=== PATIENT | female | born 1980 | race African-American/Black ===

== ENCOUNTER 2019-05-02 08:24 | Emergency (ER) | payer OTHER ==
[~2019-05-02] VITALS: Ht 160 cm; Wt 72.6 kg
[2019-05-02] MEDS ORDERED: KETOROLAC TROMETHAMINE 30 MG/ML VIAL IV STA (08:29)
[2019-05-02] MEDS ORDERED: PANTOPRAZOLE 40 MG 10ML VIAL IV STA (08:29)
[2019-05-02] MEDS ORDERED: ONDANSETRON HCL INJ 2MG/ML 2ML 2 MG/ML VIAL IV STA (08:29)
[2019-05-02] MEDS ORDERED: SODIUM CHLORIDE 0.9% 1000ML 1,000 ML IV STA (08:29)
[2019-05-02] MEDS ORDERED: DICYCLOMINE HCL 20 MG/2 ML VIAL IM ONE (08:30)
[2019-05-02 09:21] LABS: BASOPHILS % 0.2 % (0.0-1.0); EOSINOPHILS % 0.7 % (0.0-6.0); HEMATOCRIT 36.1 % (34.2-44.1); HEMOGLOBIN 11.8 g/dL (12.0-16.0); LYMPHOCYTES # (AUTO) 1.4 (1.0-3.2); LYMPHOCYTES % 23.9 % (18.0-39.1); MEAN CORPUSCULAR HEMOGLOBIN 30.1 pg (28-32); MEAN CORPUSCULAR HGB CONC 32.7 g/dL (31-35); MEAN CORPUSCULAR VOLUME 92.1 fL (81-99); MONOCYTES # (AUTO) 0.5 (0.2-0.8); MONOCYTES % 9.1 % (4.4-11.3); NEUTROPHILS # (AUTO) 3.9 (2.1-6.9); NEUTROPHILS % 65.9 % (38.7-80.0); PLATELET COUNT 276 x10e3/uL (140-360); RED BLOOD COUNT 3.92 x10e6/uL (3.6-5.1); RED CELL DISTRIBUTION WIDTH 13.1 % (11.7-14.4)
[2019-05-02 10:06] LABS: ALANINE AMINOTRANSFERASE 13 IU/L (0-55); ALBUMIN 4.1 g/dL (3.5-5.0); ALBUMIN/GLOBULIN RATIO 1.1 (0.8-2.0); ALKALINE PHOSPHATASE 61 IU/L (40-150); AMYLASE 92 U/L (25-125); ANION GAP 14.4 mmol/L (8-16); BLOOD UREA NITROGEN 12 mg/dL (7-26); BUN/CREATININE RATIO 12 (6-25); CALCIUM 8.9 mg/dL (8.4-10.2); CARBON DIOXIDE 24 mmol/L (22-29); CHLORIDE 103 mmol/L (98-107); EST GLOMERULAR FILTRATION RATE > 60 ML/MIN (60-); GLUCOSE 92 mg/dL (74-118); LIPASE 19 U/L (8-78); POTASSIUM 3.4 mmol/L (3.5-5.1); SODIUM 138 mmol/L (136-145)
--- NOTE | 2019-05-02 10:11 | Diagnostic Imaging Report ---
EXAMINATION: Right upper quadrant ultrasound CLINICAL INDICATION: Right upper quadrant pain COMPARISON: None DISCUSSION: Transverse and longitudinal images of the right upper quadrant were obtained. The liver is normal in size measuring 14.6centimeters in length in the right midclavicular line and shows normal echogenicity. No focal masses are seen in the liver. There is no intrahepatic biliary dilatation. The common bile duct is normal in caliber and measures 0.3 cm. The main portal vein is normal in caliber and measures 0.9 cm with normal hepatopetal flow. The gallbladder contains gallstones including at the gallbladder neck. Prominent gallbladder wall. No pericholecystic fluid. Negative Rae sign. The visualized portions of the pancreatic body are unremarkable. The right kidney measures 10.8 centimeters in length. There is normal renal cortical echogenicity and no hydronephrosis, mass or shadowing calculi. The visualized portions of the great vessels are normal. No free fluid is seen. IMPRESSION: Cholelithiasis without findings of cholecystitis Signed by: Dr. Pacheco Chapman M.D. on 05/02/2019 10:08 AM
[2019-05-02 11:21] LABS: CLARITY,URINE CLEAR (CLEAR); COLOR,URINE YELLOW (YELLOW); KETONES,URINE NEGATIVE (NEGATIVE); LEUKOCYTE ESTERASE ,URINE NEGATIVE (NEGATIVE); NITRITE,URINE NEGATIVE (NEGATIVE); PROTEIN,URINE DIPSTICK NEGATIVE (NEGATIVE); URINE UROBILINOGEN 0.2 mg/dL (0.2 - 1)
[2019-05-02 11:22] LABS: BILIRUBIN,URINE NEGATIVE (NEGATIVE)
[2019-05-02 12:20] LABS: BACTERIA,URINE MODERATE /HPF; EPITHELIAL CELLS,URINE MODERATE /LPF; RBC,URINE 0-5 /HPF (0-5); WBC,URINE (MAN) 0-5 /HPF (0-5)
[2019-05-02 12:26] LABS: PREGNANCY TEST, URINE NEGATIVE (NEGATIVE)
[2019-05-02 12:46] VITALS: BP 135/85
[2019-05-07] MEDS ORDERED: ULTRAM50 MG PO (08:56)
[2019-05-08] MEDS ORDERED: DICYCLOMINE HCL20 MG PO (08:02)
== END 2019-05-02 12:59 | disposition home or self-care (01) ==
LOC: ER 08:24
DX: K80.20 Calculus of gallbladder without cholecystitis without obstruction (principal)
CPT/HCPCS: 36415; 76705; 80053; 81001; 81025; 82150; 83690; 85025; 87086; 87186; 99283; C9113; J0500; J1885; J2405; J7030

== ENCOUNTER → 2019-05-08 | Day surgery (SDC) | payer OTHER ==
[~2019-05-08] MED LIST: ACETAMINOPHEN/CODEINE 300MG - 30MG TAB ONE; BUPIVACAINE 0.5%/EPI 30 ML SDV INJ ONE; DICYCLOMINE HCL20 MG PO; FENTANYL CITRATE/PF 100MCG/2 ML INJ ONE; HYDROGEN PEROXIDE 120 ML BTL ONE; HYDROMORPHONE 1MG/1ML INJ ONE; KETAMINE HCL INJ 50 MG/ML 10 ML VIAL ONE; KETOROLAC TROMETHAMINE 30 MG/ML VIAL ONE; LIDOCAINE HCL 2% LOCAL INJ 5 ML SDV VIAL INJ ONE; MIDAZOLAM HCL 2 MG/2 ML VIAL ONE; NEOSTIGMINE 1 MG/ML 10ML VIAL ONE; ONDANSETRON HCL INJ 2MG/ML 2ML 2 MG/ML VIAL ONE; PROPOFOL IV EMULSION 10 MG/ML 20 ML VIAL ONE; ROCURONIUM BROMIDE 10 MG/ML 5ML VIAL ONE; SEVOFLURANE INHAL SOLN 250 ML PEN BTL ONE; ULTRAM50 MG PO
--- OUTSIDE RECORDS SUMMARY | 2019-05-08 07:19 | XMS REPORT ---
Author Author [facility] Address Unknown Phone Unavailable Care Team Providers Care Japanese Professor Name Role Phone Scot BYRNE Unavailable Unavailable Problems This patient has no known problems. Allergies, Adverse Reactions, Alerts This patient has no known allergies or adverse reactions. Medications This patient has no known medications. Results Test Description Test Time Test Comments Text Results Atomic Results Result Comments GALLBLADDER 2019-05-02 10:06:00 [place] [address] Patient Name: JOSE FRANCO MR #: [id number] : 1980 Age/Sex: 38/F Req #: [id number] Adm Physician: Ordered by: MANNY BYRNE MD Report #: [id number] Location: ER Room/Bed: Procedure: [id number] US/US GALLBLADDER Exam Date: 05/02/19 Exam Time: 0937 REPORT STATUS: Signed EXAMINATION: Right upper quadrant ultrasound CLINICAL IN DICATION: Right upper quadrant pain COMPARISON: None DISCUSSION: Transverse and longitudinal images of the right upper quadrant were obtained. The liver is normal in size measuring 14.6centimeters in length in the right midclavicular line and shows normal echogenicity. No focal masses are seen in the liver. There is no intrahepatic biliary dilatation. The common bile duct is normal in caliber and measures 0.3 cm. The main portal vein is normal in caliber and measures 0.9 cm with normal hepatopetal flow. The gallbladder contains gallstones including at the gallbladder neck. Prominent gallbladder wall. No pericholecystic fluid. Negative Rae sign. The visualized portions of the pancreatic body are unremarkable. The right kidney measures 10.8 centimeters in length. There is normal renal cortical echogenicity and no hydronephrosis, mass or shadowing calculi. The visualized portions of the great vessels are normal. No free fluid is seen. IMPRESSION: Cholelithiasis without findings of cholecystitis Signed by: Dr. Rafiat Cullen M.D. on 05/02/2019 10:08 AM Dictated By: RAFITA CULLEN MD [id number] Transcribed By: PUJA on 05/02/19 1008 COPY TO: MANNY BYRNE MD
--- NOTE | 2019-05-08 12:27 | Operative Report ---
DATE OF PROCEDURE: 05/08/2019 SURGEON: Osvaldo Cleaning MD PREOPERATIVE DIAGNOSIS: Chronic cholecystitis secondary to cholelithiasis. POSTOPERATIVE DIAGNOSES: Chronic cholecystitis secondary to cholelithiasis plus extensive right upper quadrant adhesions, keloid of the umbilical incision. PROCEDURE PERFORMED: Laparoscopic cholecystectomy, extensive lysis of adhesion, and scar revision of the umbilicus. INDIVIDUAL PENSION ADVISER: Sergio Lugo. ESTIMATED BLOOD LOSS: Minimal. DRAINS: None. COMPLICATIONS: None. INDICATION AND FINDINGS: A 38-year-old female admitted for cholecystectomy. She had a longstanding history of right upper quadrant pain associated with fatty food intolerance. Most recently seen in the patient's Emergency Room where she had visited because of right upper quadrant pain and had a workup that revealed gallstones, normal liver chemistries. The patient had multiple surgeries in the past. INTRAOPERATIVE FINDINGS: There were extensive right upper quadrant adhesions and both right and left lobe of the liver, perihepatic adhesions also. All of which were flimsy. The reason for which is not clear. This could represent some type of pelvic inflammatory disease in the past or bleeding from her previous pelvic intraabdominal surgeries in the past. In addition to that, she had a thickened hypertrophic scar inferior to the umbilicus in a transverse fashion and we decided to excise that and revise the scar. The patient had two large stones in the gallbladder, but there was no ductal dilatation. DESCRIPTION OF PROCEDURE: With the patient lying on the operative table in the supine position after administration of general anesthesia, she was prepped and draped for laparoscopic cholecystectomy. The procedure was begun by establishing the pneumoperitoneum in the right upper quadrant midclavicular line. Because of the previous surgeries, pneumoperitoneum was insufflated to 15 mm of pressure without difficulties and then we went ahead and placed a 5 mm trocar in the umbilical site and immediately came into view extensive adhesions in the right upper quadrant and in the dome of the liver, perihepatic type of adhesions. We went ahead and then placed a third trocar in the left upper quadrant and then lysed all of the adhesions. In the dome of the liver, had perihepatic region to the diaphragm as well as on the left lobe of the liver. There were some adhesions also in the right upper quadrant separate from those. After we did that, we went ahead and placed a 10 mm subxiphoid port and finally right anterior axillary line trocar. We began then the dissection by retracting the gallbladder cephalad and laterally until we exposed the cystic duct and traced down to the common bile duct. We went ahead at this point, identified the common hepatic duct and the cystic artery. We transected then the cystic duct between titanium clips and then continued the dissection until we identify the cystic artery in both anterior and a posterior branch, we transected between titanium clips also. Then, we continued the dissection, detached the gallbladder from the liver bed and removed it through the umbilical port. We reinsufflated the pneumoperitoneum after we ascertained that there was no bile leak, no bleeding nor any apparent bowel injury. We released the pneumoperitoneum. We revised the umbilical scar by excising the hypertrophic nodule down to the soft tissue and then we closed the incision in that location with #0 Vicryl for the fascia, 3-0 Vicryl for the subcutaneous tissues, and the skin was closed using 3-0 silk. The sub-xiphoid port was closed using 3-0 Vicryl and all other skin incisions were closed using 3-0 silk sutures. After this, the skin of the port sites was infiltrated with 0.25% Marcaine epinephrine. MD SEKOU Godoy/MANDIE /[id number]
[2019-05-08 13:20] VITALS: BP 131/80
== END | disposition home or self-care (01) ==
LOC: OR 07:17
PROVIDERS: ATTEND Surgery
DX: K80.10 Calculus of gallbladder with chronic cholecystitis without obstruction (principal); L91.0 Hypertrophic scar; J45.909 Unspecified asthma, uncomplicated; E66.9 Obesity, unspecified; K21.9 Gastro-esophageal reflux disease without esophagitis; Z87.891 Personal history of nicotine dependence; Z91.040 Latex allergy status; Z91.018 Allergy to other foods
CPT/HCPCS: 47562; 81025; 88304; C1766; J1170; J1885; J2001; J2250; J2405; J2704; J2710; J3010